=== PATIENT | male | born 1995 | race Caucasian/White ===

== ENCOUNTER 2023-05-22 19:40 | Emergency (ER) | payer BC ==
[2023-05-22] MEDS ORDERED: Lidocaine 1% 10 ML MDV INJECT ONE (20:42)
== END 2023-05-22 21:53 | disposition home or self-care (01) ==
LOC: JD.ED 19:40
DX: S01.112A Laceration without foreign body of left eyelid and periocular area, initial encounter (principal); Z87.891 Personal history of nicotine dependence; W00.0XXA Fall on same level due to ice and snow, initial encounter; Y93.01 Activity, walking, marching and hiking; Y92.89 Other specified places as the place of occurrence of the external cause; Y99.0 Civilian activity done for income or pay
CPT/HCPCS: 12013; 99283; J3490

== ENCOUNTER 2025-04-08 06:56 | Day surgery (SDC) | payer BC ==
[~2025-04-08 06:56] MED LIST: Sodium Chloride 0.9% 10 ML Syringe FLUSH PRN; Sodium Chloride 0.9% 10 ML Syringe FLUSH SCH
[2025-04-08] MEDS: Lactated Ringers 1,000 ML IV SCH (07:15)
[2025-04-08] MEDS ORDERED: propofoL 500 MG/50 ML 50 ML ONE (07:47)
[2025-04-08] MEDS ORDERED: Propofol 200 MG/20 ML SDV ONE (08:01)
== END 2025-04-08 09:00 | disposition home or self-care (01) ==
LOC: JD.SDS 06:56
PROVIDERS: ATTEND Surgery
DX: K29.50 Unspecified chronic gastritis without bleeding (principal); K20.90 Esophagitis, unspecified without bleeding; K63.89 Other specified diseases of intestine; K64.0 First degree hemorrhoids; K64.4 Residual hemorrhoidal skin tags; K92.1 Melena; E66.9 Obesity, unspecified; F17.210 Nicotine dependence, cigarettes, uncomplicated; Z68.35 Body mass index [BMI] 35.0-35.9, adult; Z79.899 Other long term (current) drug therapy
CPT/HCPCS: 43239; 45380; J2003; J2704; J7120; 00813